=== PATIENT | female | born 1975 | race Caucasian/White ===

== ENCOUNTER 2018-10-26 20:18 | Emergency (ER) | payer OTHER ==
[~2018-10-26] VITALS: Ht 154.9 cm; Wt 60.3 kg
--- NOTE | 2018-10-26 21:27 | ED General ---
General Chief Complaint: Foreign Body Stated Complaint: FISH HOOK STUCK IN RT SHOULDER Nursing Triage Note: PT NEPHEW WAS FISHING AND WHEN HE CAST HIS REEL IT CAUGHT INTO THE PATIENTS RIGHT SHOULDER. PT UNSURE OF LAST TDAP. Nursing Sepsis Screen: No Definite Risk Source of Information: Patient Exam Limitations: No Limitations History of Present Illness Date Seen by Provider: Oct 26, 2018 Time Seen by Provider: 21:15 Allergies and Home Medications Allergies Coded Allergies: Penicillins (Verified Allergy, Unknown, 10/26/18) Sulfa (Sulfonamide Antibiotics) (Verified Allergy, Unknown, 10/26/18) iodine (Verified Allergy, Unknown, 10/26/18) Past Ssoaymn-Vzbalc-Whwrlt Hx Patient Social History Alcohol Use: Denies Use Recreational Drug Use: No Smoking Status: Current Everyday Smoker Recent Foreign Travel: No Contact w/Someone Who Travel: No Recent Infectious Disease Expo: No Recent Hopitalizations: No Physical Abuse: No Sexual Abuse: No Mistreated: No Fear: No Immunizations Up To Date Tetanus Booster (TDap): Unknown Seasonal Allergies Seasonal Allergies: No Past Medical History Surgeries: No Respiratory: No Cardiac: Yes Neurological: No Genitourinary: No Gastrointestinal: No Musculoskeletal: No HEENT: No Cancer: No Psychosocial: No Integumentary: No Physical Exam Vital Signs Vital Signs - First Documented 10/26/18 20:38 Temp 97.6 Pulse 87 Resp 18 B/P (MAP) 115/71 (86) O2 Delivery Room Air Capillary Refill : Less Than 3 Seconds Height, Weight, BMI Height: 5'1.00" Weight: 133lbs. oz. [id number]; BMI Method:Stated Progress/Results/Core Measures Suspected Sepsis Recent Fever Within 48 Hours: No Infection Criteria Present: None New/Unexplained Altered Menta: No Sepsis Screen: No Definite Risk SIRS Temperature:97.6 Pulse: 87 Respiratory Rate: 18 Blood Pressure 115 /71 Mean: 86 Results/Orders My Orders Orders - PANKAJ WISEMAN PA Dipht,Pertuss(Acell),Tet Adult (Boostrix (10/26/18 21:30) Lidocaine/Epi 1% 1:100,000 (Xylocaine /E (10/26/18 21:30) Vital Signs/I&O 10/26/18 20:38 Temp 97.6 Pulse 87 Resp 18 B/P (MAP) 115/71 (86) O2 Delivery Room Air Capillary Refill : Less Than 3 Seconds Blood Pressure Mean: 86 Departure Impression Primary Impression: Foreign body in skin Disposition: 01 HOME, SELF-CARE Condition: Improved Departure-Patient Inst. Decision time for Depature: 21:37 Referrals: NO,LOCAL PHYSICIAN (PCP/Family) Primary Care Physician Patient Instructions: Foreign Body in Skin (DC) Add. Discharge Instructions: All discharge instructions reviewed with patient and/or family. Voiced understanding. Medications as instructed. Tylenol extra strength [id number] as directed for pain. Ibuprofen 800 mg by mouth every 8 hours as needed for pain. Tomorrow morning you may begin showering with antibacterial soap. Applied Neosporin twice daily for 3 days. Follow-up with her family practitioner for recheck outpatient if needed. Return to the emergency department for worsened symptoms or any other concerns. Scripts Clindamycin HCl (Clindamycin HCl) 300 Mg Capsule 300 MG PO TID, #15 CAP 0 Refills Prov: PANKAJ WISEMAN 10/26/18 PANKAJ WISEMAN Oct 26, 2018 21:27
[2018-10-26] MEDS ORDERED: LIDOCAINE/EPI 1%-1:100,000 (XYLOCAINE) 20ML INJ ONE (21:30)
[2018-10-26] MEDS ORDERED: TETANUS,DIPTH,PERTUSS P/F (BOOSTRIX) 0.5 ML VIAL IM ONE (21:30)
[2018-10-26] MEDS ORDERED: CLIN300C11 PO (21:40)
[2018-10-26] MEDS ORDERED: LIDOCAINE/EPI 2% 1:100,00 (XYLOCAINE) 20 ML VIAL ONE (21:54)
[2018-10-26] MEDS ORDERED: RX-CLINDAMYCIN 150 MG (CLEOCIN) CAP PPK#4 PO STA (22:15)
[2018-10-26 22:50] VITALS: BP 115/71
== END 2018-10-26 22:53 | disposition home or self-care (01) ==
LOC: ER 20:21
DX: S40.251A Superficial foreign body of right shoulder, initial encounter (principal); F17.200 Nicotine dependence, unspecified, uncomplicated; Z88.2 Allergy status to sulfonamides; Z88.0 Allergy status to penicillin; Z91.041 Radiographic dye allergy status; W26.8XXA Contact with other sharp object(s), not elsewhere classified, initial encounter
CPT/HCPCS: 90715; 99284